=== PATIENT | male | born 1955 | race Caucasian/White ===

== ENCOUNTER 2020-08-03 13:57 | Emergency (ER) | payer OTHER ==
--- NOTE | 2020-08-03 15:19 | EDM.PDOC ---
ED HPI GENERAL MEDICAL PROBLEM - General Chief Complaint: Respiratory Problem Stated Complaint: SHORTNESS OF BREATH COVID Time Seen by Provider: 08/03/20 15:00 Source of Information: Reports: Patient History Limitations: Reports: No Limitations - History of Present Illness INITIAL COMMENTS - FREE TEXT/NARRATIVE: This 65 yo male patient reports to the ED due to increased shortness of breath over the past 9 days. The patient reports his and daughter have been diagnosed with COVID. The patient reports a history of Asthma, but is currently not on any medications. Onset Date: 07/25/20 Duration: Day(s):, Constant, Getting Worse Location: Reports: Chest Quality: Reports: Other Severity: Moderate Improves with: Reports: None Worsens with: Reports: None Context: Reports: Other Associated Symptoms: Reports: Cough, Shortness of Breath ED ROS GENERAL - Review of Systems Review Of Systems: Comprehensive ROS is negative, except as noted in HPI. ED EXAM, GENERAL - Physical Exam Exam: See Below Exam Limited By: No Limitations General Appearance: Alert, WD/WN, Moderate Distress Eye Exam: Bilateral Eye: EOMI, Normal Inspection, PERRL Ears: Normal External Exam, Normal Canal, Hearing Grossly Normal, Normal TMs Nose: Normal Inspection Throat/Mouth: Normal Inspection, Normal Lips, Normal Teeth, Normal Gums, Normal Oropharynx, Normal Voice, No Airway Compromise Head: Atraumatic, Normocephalic Neck: Normal Inspection, Supple, Non-Tender, Full Range of Motion Respiratory/Chest: Decreased Breath Sounds (bilateral lower lobes). No: Rhonchi, Wheezing Cardiovascular: Normal Peripheral Pulses, Regular Rate, Rhythm, No Edema, No Gallop, No JVD, No Murmur, No Rub GI/Abdominal: Normal Bowel Sounds, Soft, Non-Tender, No Organomegaly, No Distent ion, No Abnormal Bruit, No Mass (Male) Exam: Deferred Rectal (Males) Exam: Deferred Back Exam: Normal Inspection, Full Range of Motion, NT Extremities: Normal Inspection, Normal Range of Motion, Non-Tender, Normal Capillary Refill, No Pedal Edema Neurological: Alert, Oriented, CN II-XII Intact, Normal Cognition, Normal Gait, Normal Reflexes, No Motor/Sensory Deficits Psychiatric: Normal Affect, Normal Mood Skin Exam: Warm, Dry, Intact, Normal Color, No Rash Lymphatic: No Adenopathy Course - Vital Signs Last Recorded V/S: Last Vital Signs Temp 36.4 C 08/03/20 14:16 Pulse 101 H 08/03/20 14:16 Resp 14 08/03/20 14:16 BP 133/77 08/03/20 14:16 Pulse Ox 96 08/03/20 14:16 - Orders/Labs/Meds Labs: Laboratory Tests 08/03/20 Range/Units 14:40 SARS CoV-2 RNA Rapid URIAH Positive H (NEGATIVE) Departure - Departure Time of Disposition: 15:16 Disposition: Home, Self-Care 01 Condition: Fair Clinical Impression: COVID-19 - Discharge Information *PRESCRIPTION DRUG MONITORING PROGRAM REVIEWED*: Not Applicable *COPY OF PRESCRIPTION DRUG MONITORING REPORT IN PATIENT FRANK: Not Applicable Instructions: COVID-19: How to Protect Yourself and Others - CDC, Prevent the Spread of COVID-19 if You Are Sick - [facility] [place]: ED Department Discharge Care Plan Goals: The patient was advised of the examination and lab results during the visit. The patient was discharged with scripts for 1) Dexamethasone (6 mg) to take 1 by mouth daily for 10 days, 2) Doxycycline (100 mg) #20 to take 1 by mouth 2 times per day for 10 days and 3) Albuterol MDI to take 2 puffs every 4 hours as needed. If the patient has any additional symptoms or concerns, the patient should either return to the emergency department or visit his primary care facility. Sepsis Event Note (ED) - Evaluation Sepsis Screening Result: No Definite Risk - Focused Exam Vital Signs: Vital Signs Temp Pulse Resp BP Pulse Ox 08/03/20 14:16 36.4 C 101 H 14 133/77 96
== END 2020-08-03 15:27 | disposition home or self-care (01) ==
LOC: DL.ED 13:57
DX: U07.1 COVID-19 (principal)
CPT/HCPCS: 99283; U0002

== ENCOUNTER 2020-08-07 10:23 | Inpatient (IN) | payer OTHER ==
--- NOTE | 2020-08-07 11:12 | EDM.PDOC ---
ED HPI GENERAL MEDICAL PROBLEM - General Chief Complaint: Respiratory Problem Stated Complaint: COVID+ HARD TIME BREATHING Time Seen by Provider: 08/07/20 10:50 Source of Information: Reports: Patient History Limitations: Reports: No Limitations - History of Present Illness INITIAL COMMENTS - FREE TEXT/NARRATIVE: This 65 yo male patient reports to the ED with increased shortness of breath. The patient reports he started to have COVID symptoms on 07/25/20, was seen in the ED on 08/03/20, was started on Dexamethasone, Doxycycline, Albuterol Inhaler, but has continued to have increased symptoms. The patient reports he did use his inhaler for the first time today with no changes in his symptoms. The patient reports he has been taking his medications as prescribed. Nursing s taff reported the patient's oxygen saturation dropped to 84% when moving from the wheelchair to the bed without oxygen. Duration: Day(s):, Constant, Getting Worse Location: Reports: Chest Quality: Reports: Other Severity: Moderate Improves with: Reports: Rest Worsens with: Reports: Movement Context: Reports: Other Associated Symptoms: Reports: Cough, Shortness of Breath - Related Data Allergies Allergy/AdvReac Type Severity Reaction Status Date / Time No Known Allergies Allergy Verified 08/07/20 10:50 ED ROS GENERAL - Review of Systems Review Of Systems: Comprehensive ROS is negative, except as noted in HPI. ED EXAM, GENERAL - Physical Exam Exam: See Below Exam Limited By: No Limitations General Appearance: Alert, WD/WN, Moderate Distress Eye Exam: Bilateral Eye: EOMI, Normal Inspection, PERRL Ears: Normal External Exam, Normal Canal, Hearing Grossly Normal, Normal TMs Nose: Normal Inspection, Normal Mucosa, No Blood Throat/Mouth: Normal Inspection, Normal Lips, Normal Teeth, Normal Gums, Normal Oropharynx, Normal Voice, No Airway Compromise Head: Atraumatic, Normocephalic Neck: Normal Inspection, Supple, Non-Tender, Full Range of Motion Respiratory/Chest: Decreased Breath Sounds Cardiovascular: Normal Peripheral Pulses, Regular Rate, Rhythm, No Edema, No Gallop, No JVD, No Murmur, No Rub GI/Abdominal: Normal Bowel Sounds, Soft, Non-Tender, No Organomegaly, No Distention, No Abnormal Bruit, No Mass (Male) Exam: Deferred Rectal (Males) Exam: Deferred Back Exam: Normal Inspection, Full Range of Motion, NT Extremities: Normal Inspection, Normal Range of Motion, Non-Tender, Normal Capillary Refill, No Pedal Edema Neurological: Alert, Oriented, CN II-XII Intact, Normal Cognition, Normal Gait, Normal Reflexes, No Motor/Sensory Deficits Psychiatric: Normal Affect, Normal Mood Skin Exam: Warm, Dry, Intact, Normal Color, No Rash Lymphatic: No Adenopathy Course - Vital Signs Last Recorded V/S: Last Vital Signs Temp 37.3 C 08/07/20 10:50 Pulse 90 08/07/20 10:50 Resp 20 08/07/20 10:50 BP 121/62 08/07/20 10:50 Pulse Ox 89 L 08/07/20 10:50 - Orders/Labs/Meds Orders: Active Orders 24 hr Category Date Time Status EKG Documentation Completion [RC] STAT Care 08/07/20 11:03 Active CULTURE BLOOD [BC] Stat Lab 08/07/20 11:08 Received Labs: Laboratory Tests 08/07/20 08/07/20 08/07/20 Range/Units 11:08 11:08 11:08 WBC 8.9 (5.0-10.0) 10^3/uL RBC 4.97 (4.6-6.2) 10^6/uL Hgb 14.4 (14.0-18.0) g/dL Hct 41.0 (40.0-54.0) % MCV 82.5 (80-100) fL MCH 29.0 (27.0-34.0) pg MCHC 35.1 H (33.0-35.0) g/dL Plt Count 244 (150-450) 10^3/uL Neut % (Auto) 85.7 H (42.2-75.2) % Lymph % (Auto) 6.4 L (20.5-50.1) % [place] % (Auto) 7.6 (2-8) % Eos % (Auto) 0.1 L (1.0-3.0) % Baso % (Auto) 0.2 (0.0-1.0) % Add Manual Diff Yes Neutrophils % (Manual) 88 H (42-75) % Band Neutrophils % 2 % Lymphocytes % (Manual) 3 L (20-50) % Monocytes % (Manual) 7 (2-8) % D-Dimer, Quantitative > 5000 H (0-400) ng/mL Sodium 136 (136-145) mmol/L Potassium 3.5 (3.5-5.1) mmol/L Chloride 101 (98-107) mmol/L Carbon Dioxide 24 (21-32) mmol/L Anion Gap 14.5 H (7-13) mEq/L BUN 23 H (7-18) mg/dL Creatinine 1.23 (0.70-1.30) mg/dL Est Cr Clr Drug Dosing 67.47 mL/min Estimated GFR (MDRD) 59 BUN/Creatinine Ratio 18.7 (No establ ref range) Glucose 165 H (74-99) mg/dL Lactic Acid (0.4-2.0) mmol/L Calcium 8.5 (8.5-10.1) mg/dL Total Bilirubin 1.0 (0.2-1.0) mg/dL AST 37 (15-37) U/L ALT 58 (16-63) U/L Alkaline Phosphatase 60 (46-116) U/L Troponin I < 0.017 (0.000-0.056) ng/mL Total Protein 7.1 (6.4-8.2) g/dL Albumin 3.2 L (3.4-5.0) g/dL Globulin 3.9 Albumin/Globulin Ratio 0.82 11/24/20 Range/Units 11:08 WBC (5.0-10.0) 10^3/uL RBC (4.6-6.2) 10^6/uL Hgb (14.0-18.0) g/dL Hct (40.0-54.0) % MCV (80-100) fL MCH (27.0-34.0) pg MCHC (33.0-35.0) g/dL Plt Count (150-450) 10^3/uL Neut % (Auto) (42.2-75.2) % Lymph % (Auto) (20.5-50.1) % [place] % (Auto) (2-8) % Eos % (Auto) (1.0-3.0) % Baso % (Auto) (0.0-1.0) % Add Manual Diff Neutrophils % (Manual) (42-75) % Band Neutrophils % % Lymphocytes % (Manual) (20-50) % Monocytes % (Manual) (2-8) % D-Dimer, Quantitative (0-400) ng/mL Sodium (136-145) mmol/L Potassium (3.5-5.1) mmol/L Chloride (98-107) mmol/L Carbon Dioxide (21-32) mmol/L Anion Gap (7-13) mEq/L BUN (7-18) mg/dL Creatinine (0.70-1.30) mg/dL Est Cr Clr Drug Dosing mL/min Estimated GFR (MDRD) BUN/Creatinine Ratio (No establ ref range) Glucose (74-99) mg/dL Lactic Acid 2.6 H* (0.4-2.0) mmol/L Calcium (8.5-10.1) mg/dL Total Bilirubin (0.2-1.0) mg/dL AST (15-37) U/L ALT (16-63) U/L Alkaline Phosphatase (46-116) U/L Troponin I (0.000-0.056) ng/mL Total Protein (6.4-8.2) g/dL Albumin (3.4-5.0) g/dL Globulin Albumin/Globulin Ratio Meds: Medications Discontinued Medications Generic Name Dose Route Start Last Admin Trade Name Freq PRN Reason Stop Dose Admin Iopamidol 100 ml 08/07/20 11:57 08/07/20 12:52 Isovue-370 (76%) IVPUSH 08/07/20 11:58 80 ml ONETIME ONE Administration Departure - Departure Time of Disposition: 13:15 Disposition: Admitted As Inpatient 68 Condition: Poor Clinical Impression: Hypoxia Pneumonia Qualifiers: Pneumonia type: due to unspecified organism Laterality: bilateral Lung location: unspecified part of lung Qualified Code(s): J18.9 - Pneumonia, unspecified organism - Discharge Information *PRESCRIPTION DRUG MONITORING PROGRAM REVIEWED*: Not Applicable *COPY OF PRESCRIPTION DRUG MONITORING REPORT IN PATIENT FRANK: Not Applicable Care Plan Goals: Discussed the patient's history, examination, previous treatments and CT results with Dr. Machado. Dr. Machado accepted the patient for continued evaluation and further management as an inpatient at [facility]. Sepsis Event Note (ED) - Evaluation Sepsis Screening Result: No Definite Risk - Focused Exam Vital Signs: Vital Signs Temp Pulse Resp BP Pulse Ox 08/07/20 10:50 37.3 C 90 20 121/62 89 L - My Orders Last 24 Hours: My Active Orders 08/07/20 11:03 EKG Documentation Completion [RC] STAT 08/07/20 11:08 CULTURE BLOOD [BC] Stat - Assessment/Plan Last 24 Hours: My Active Orders 08/07/20 11:03 EKG Documentation Completion [RC] STAT 08/07/20 11:08 CULTURE BLOOD [BC] Stat
[2020-08-07 11:43] LABS: ANION GAP 14.5 mEq/L (7-13); CHLORIDE,CL 101 mmol/L (98-107); SODIUM,NA 136 mmol/L (136-145)
[2020-08-07] MEDS ORDERED: Iopamidol 755 Mg/ML 100 ML Bottle IVPUSH ONE (11:57)
--- NOTE | 2020-08-07 12:37 | CT ---
EXAMINATION: Chest w Cont SEX: Male AGE: 65 years CLINICAL HISTORY: 65-year-old: Positive patient in the emergency department short of breath. Serum D dimer greater than 5000. Scan technique: Volume acquisition of data from the chest (bony thorax, lungs and mediastinum) obtained during the intravenous administration 80 cc nonionic Isovue 370 contrast at 5 cc/s via injector while patient was lying supine on the Siemens multislice scanner [place], [place]. All data archived in the PACS system for storage, reformatting axial/sagittal/coronal planes and study (lung/mediastinal/bone windows). Interpretation: Abnormal. 1. *Multilobar, peripheral pleural-based, "groundglass" lung densities identified throughout both lung johnson. 2. No intraluminal filling defect or thrombus identified in the proximal main pulmonary artery segments. 3. No abnormal regions of focal oligemia or signs of dependent pleural effusion. 4. No proximal focal lobar consolidation (infiltrate/atelectasis) or air bronchograms. 5. Normal cardiac silhouette. No pericardial effusion. No vascular congestion or alveolar edema. 6. Normal caliber thoracic aorta. No aneurysm or dissection. No pneumothorax or pneumomediastinum. 7. No lung mass or suspicious hilar/mediastinal lymphadenopathy. 8. Gallbladder, liver, stomach, spleen and pancreas unremarkable. 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 No underlying signs of heart failure, lung malignancy or bacterial pneumonia.
[2020-08-07] MEDS ORDERED: Magnesium Hydroxide 400 MG/5 ML Susp 30 ML Cup PO PRN (13:40)
[2020-08-07] MEDS ORDERED: Docusate Sodium 100 MG Cap PO PRN (13:40)
[2020-08-07] MEDS ORDERED: Ondansetron 4 MG/2 ML SDV IVPUSH PRN (13:40)
--- NOTE | 2020-08-07 13:55 | PCM.HP ---
H&P History of Present Illness - General Date of Service: 08/07/20 Admit Problem/Dx: Admission Diagnosis/Problem Admission Diagnosis/Problem Hypoxia Source of Information: Patient History Limitations: Reports: No Limitations - History of Present Illness Initial Comments - Free Text/Narative: Jerome is 65-year-old male with no significant past medical history who presented to the ED for evaluation of worsening symptoms of COVID-19. Patient reports his symptoms started on day 07/25/2020. He has been recuperating at home. He was seen in the ED on 08/03/2020 and tested positive for COVID-19. He was discharged home on dexamethasone, doxycycline and albuterol. Patient does not recall how he contracted the virus. He has been having increasing shortness of breath, cough, fever on and off, headache so he presented back to the ED. His O2 sats in the ED was 84% on room air. He was placed on supplemental oxygen. He denies chest pain. He has no fever, chills at this time. Denies abdominal pain, nausea, vomiting, diarrhea. Significant labs: D-dimer 5000, lactic acid 2.6. He had a CT chest which was negative for PE. He did show monitor for groundglass opacity throughout the lung johnson. Admission was requested for further management. Onset of Symptoms: Reports: Gradual Duration of Symptoms: Reports: Day(s): Location: Reports: Chest Quality: Reports: Ache Improves with: Reports: None Worsens with: Reports: None Associated Symptoms: Reports: No Other Symptoms - Related Data Allergies/Adverse Reactions: Allergies Allergy/AdvReac Type Severity Reaction Status Date / Time No Known Allergies Allergy Verified 08/07/20 10:50 Past Medical History - Past Health History Medical/Surgical History: Denies Medical/Surgical History - Infectious Disease History Infectious Disease History: Reports: Novel Coronavirus Social & Family History - Tobacco Use Tobacco Use Status *Q: Never Tobacco User Second Hand Smoke Exposure: No - Caffeine Use Caffeine Use: Reports: None - Recreational Drug Use Recreational Drug Use: No H&P Review of Systems - Review of Systems: Review Of Systems: See Below Free Text/Narrative: Shortness of breath General: Reports: No Symptoms HEENT: Reports: No Symptoms Pulmonary: Reports: Shortness of Breath, Cough, Sputum Cardiovascular: Reports: No Symptoms Gastrointestinal: Reports: No Symptoms Genitourinary: Reports: No Symptoms Musculoskeletal: Reports: No Symptoms Skin: Reports: No Symptoms Psychiatric: Reports: No Symptoms Neurological: Reports: No Symptoms Hematologic/Lymphatic: Reports: No Symptoms Immunologic: Reports: No Symptoms Exam - Exam Exam: See Below - Vital Signs Vital Signs: Last Vital Signs Temp 98.4 F 08/07/20 13:30 Pulse 111 H 08/07/20 13:30 Resp 20 08/07/20 13:30 BP 113/73 08/07/20 13:30 Pulse Ox 91 L 08/07/20 13:32 Weight: 250 lb - Exam Quality Assessment: Supplemental Oxygen General: Alert, Oriented, 4 HEENT: PERRLA, Hearing Intact, Mucosa Moist & [place], Nares Patent, Normal Nasal Septum, Posterior Pharynx Clear, Conjunctiva Clear, EOMI, EACs Clear, TMs Clear Neck: Supple, Trachea Midline, 2 Lungs: Clear to Auscultation, Normal Respiratory Effort Cardiovascular: Regular Rate, Regular Rhythm GI/Abdominal Exam: Normal Bowel Sounds, Soft, Non-Tender, No Organomegaly, No Distention, No Abnormal Bruit, No Mass, Pelvis Stable (Male) Exam: No Hernia, Normal Inspection, Normal Prostate, Circumcised Rectal (Males) Exam: Normal Exam, Normal Rectal Tone, Prostate Normal Back Exam: Normal Inspection, Full Range of Motion, NT Extremities: Normal Inspection, Normal Range of Motion, Non-Tender, No Pedal Edema, Normal Capillary Refill Skin: Warm, Dry, Intact Neurological: Cranial Nerves Intact, Reflexes Equal Bilateral Neuro Extensive - Mental Status: Alert, Oriented x3, Normal Mood/Affect, Normal Cognition Neuro Extensive - Motor, Sensory, Reflexes: CN II-XII Intact, Normal Gait, Normal Reflexes Psychiatric: Alert, Normal Affect, Normal Mood - Patient Data Lab Results Last 24 hrs: Laboratory Results - last 24 hr 08/07/20 08/07/20 08/07/20 Range/Units 11:08 11:08 11:08 WBC 8.9 (5.0-10.0) 10^3/uL RBC 4.97 (4.6-6.2) 10^6/uL Hgb 14.4 (14.0-18.0) g/dL Hct 41.0 (40.0-54.0) % MCV 82.5 (80-100) fL MCH 29.0 (27.0-34.0) pg MCHC 35.1 H (33.0-35.0) g/dL Plt Count 244 (150-450) 10^3/uL Neut % (Auto) 85.7 H (42.2-75.2) % Lymph % (Auto) 6.4 L (20.5-50.1) % [place] % (Auto) 7.6 (2-8) % Eos % (Auto) 0.1 L (1.0-3.0) % Baso % (Auto) 0.2 (0.0-1.0) % Add Manual Diff Yes Neutrophils % (Manual) 88 H (42-75) % Band Neutrophils % 2 % Lymphocytes % (Manual) 3 L (20-50) % Monocytes % (Manual) 7 (2-8) % D-Dimer, Quantitative > 5000 H (0-400) ng/mL Sodium 136 (136-145) mmol/L Potassium 3.5 (3.5-5.1) mmol/L Chloride 101 (98-107) mmol/L Carbon Dioxide 24 (21-32) mmol/L Anion Gap 14.5 H (7-13) mEq/L BUN 23 H (7-18) mg/dL Creatinine 1.23 (0.70-1.30) mg/dL Est Cr Clr Drug Dosing 67.47 mL/min Estimated GFR (MDRD) 59 BUN/Creatinine Ratio 18.7 (No establ ref range) Glucose 165 H (74-99) mg/dL Lactic Acid (0.4-2.0) mmol/L Calcium 8.5 (8.5-10.1) mg/dL Total Bilirubin 1.0 (0.2-1.0) mg/dL AST 37 (15-37) U/L ALT 58 (16-63) U/L Alkaline Phosphatase 60 (46-116) U/L Troponin I < 0.017 (0.000-0.056) ng/mL Total Protein 7.1 (6.4-8.2) g/dL Albumin 3.2 L (3.4-5.0) g/dL Globulin 3.9 Albumin/Globulin Ratio 0.82 11/24/20 Range/Units 11:08 WBC (5.0-10.0) 10^3/uL RBC (4.6-6.2) 10^6/uL Hgb (14.0-18.0) g/dL Hct (40.0-54.0) % MCV (80-100) fL MCH (27.0-34.0) pg MCHC (33.0-35.0) g/dL Plt Count (150-450) 10^3/uL Neut % (Auto) (42.2-75.2) % Lymph % (Auto) (20.5-50.1) % [place] % (Auto) (2-8) % Eos % (Auto) (1.0-3.0) % Baso % (Auto) (0.0-1.0) % Add Manual Diff Neutrophils % (Manual) (42-75) % Band Neutrophils % % Lymphocytes % (Manual) (20-50) % Monocytes % (Manual) (2-8) % D-Dimer, Quantitative (0-400) ng/mL Sodium (136-145) mmol/L Potassium (3.5-5.1) mmol/L Chloride (98-107) mmol/L Carbon Dioxide (21-32) mmol/L Anion Gap (7-13) mEq/L BUN (7-18) mg/dL Creatinine (0.70-1.30) mg/dL Est Cr Clr Drug Dosing mL/min Estimated GFR (MDRD) BUN/Creatinine Ratio (No establ ref range) Glucose (74-99) mg/dL Lactic Acid 2.6 H* (0.4-2.0) mmol/L Calcium (8.5-10.1) mg/dL Total Bilirubin (0.2-1.0) mg/dL AST (15-37) U/L ALT (16-63) U/L Alkaline Phosphatase (46-116) U/L Troponin I (0.000-0.056) ng/mL Total Protein (6.4-8.2) g/dL Albumin (3.4-5.0) g/dL Globulin Albumin/Globulin Ratio Result Diagrams: 08/07/20 11:08 08/07/20 11:08 - Problem List (1) Acute respiratory failure with hypoxia SNOMED Code(s): 08986022, 801610772 ICD Code: J96.01 - ACUTE RESPIRATORY FAILURE WITH HYPOXIA Status: Acute Current Visit: Yes (2) Sepsis SNOMED Code(s): 72242644 ICD Code: A41.9 - SEPSIS, UNSPECIFIED ORGANISM Status: Acute Current Visit: Yes (3) Elevated d-dimer SNOMED Code(s): 445222710 ICD Code: R79.89 - OTHER SPECIFIED ABNORMAL FINDINGS OF BLOOD CHEMISTRY Status: Acute Current Visit: Yes Problem List Initiated/Reviewed/Updated: Yes Orders Last 24hrs: Active Orders 24 hr Category Date Time Status Admission Diagnosis [ADT] Urgent ADT 08/07/20 13:12 Ordered Admission Status [Patient Status] [ADT] Routine ADT 08/07/20 13:12 Active Ambulate [RC] ASDIRECTED Care 08/07/20 13:40 Ordered EKG Documentation Completion [RC] STAT Care 08/07/20 11:03 Active Height and Weight [RC] DAILY Care 08/07/20 13:40 Ordered Intake and Output [RC] QSHIFT Care 08/07/20 13:41 Ordered Notify Provider Vital Signs [RC] ASDIRECTED Care 08/07/20 13:41 Ordered Oxygen Therapy [RC] PRN Care 08/07/20 13:41 Ordered Pulse Oximetry [RC] PRN Care 08/07/20 13:41 Ordered VTE/DVT Education [RC] PER UNIT ROUTINE Care 08/07/20 13:41 Ordered Vital Signs [RC] Q4H Care 08/07/20 13:41 Ordered Respiratory Care Assess and Treatment [CONS] Routine Cons 08/07/20 13:44 Ordered Regular Diet [DIET] Diet 08/07/20 Dinner Ordered COMPREHENSIVE METABOLIC PN,CMP [CHEM] DAILY Lab 08/08/20 07:00 Ordered COMPREHENSIVE METABOLIC PN,CMP [CHEM] DAILY Lab 08/09/20 07:00 Ordered COMPREHENSIVE METABOLIC PN,CMP [CHEM] DAILY Lab 08/10/20 07:00 Ordered COMPREHENSIVE METABOLIC PN,CMP [CHEM] DAILY Lab 08/11/20 07:00 Ordered CULTURE BLOOD [BC] Stat Lab 08/07/20 11:08 Received CULTURE BLOOD [BC] Stat Lab 08/07/20 13:44 Ordered CULTURE BLOOD [BC] Stat Lab 08/07/20 13:44 Ordered DD [D-DIMER QUANTITATIVE] [COAG] DAILY Lab 08/08/20 07:00 Ordered DD [D-DIMER QUANTITATIVE] [COAG] DAILY Lab 08/09/20 07:00 Ordered DD [D-DIMER QUANTITATIVE] [COAG] DAILY Lab 08/10/20 07:00 Ordered DD [D-DIMER QUANTITATIVE] [COAG] DAILY Lab 08/11/20 07:00 Ordered INR,PT,PROTHROMBIN TIME [COAG] DAILY Lab 08/08/20 07:00 Ordered INR,PT,PROTHROMBIN TIME [COAG] DAILY Lab 08/09/20 07:00 Ordered INR,PT,PROTHROMBIN TIME [COAG] DAILY Lab 08/10/20 07:00 Ordered INR,PT,PROTHROMBIN TIME [COAG] DAILY Lab 08/11/20 07:00 Ordered LACTATE DEHYDROGENASE,LDH [CHEM] DAILY Lab 08/08/20 07:00 Ordered LACTATE DEHYDROGENASE,LDH [CHEM] DAILY Lab 08/09/20 07:00 Ordered LACTATE DEHYDROGENASE,LDH [CHEM] DAILY Lab 08/10/20 07:00 Ordered LACTATE DEHYDROGENASE,LDH [CHEM] DAILY Lab 08/11/20 07:00 Ordered MAGNESIUM [CHEM] Routine Lab 08/07/20 13:40 Ordered PHOSPHORUS [CHEM] Routine Lab 08/07/20 13:40 Ordered TROPONIN I [CHEM] DAILY Lab 08/08/20 07:00 Ordered TROPONIN I [CHEM] DAILY Lab 08/09/20 07:00 Ordered TROPONIN I [CHEM] DAILY Lab 08/10/20 07:00 Ordered TROPONIN I [CHEM] DAILY Lab 08/11/20 07:00 Ordered Acetaminophen [TylenoL] Med 08/07/20 13:40 Ordered 650 mg PO Q4H PRN Docusate Sodium [Colace] Med 08/07/20 13:40 Ordered 100 mg PO BID PRN Magnesium Hydroxide [Milk of Magnesia] Med 08/07/20 13:40 Ordered 30 ml PO Q12H PRN Ondansetron [Zofran] Med 08/07/20 13:40 Ordered 4 mg IVPUSH Q6H PRN dexAMETHasone [Decadron] Med 08/08/20 09:00 Ordered 6 mg IVPUSH DAILY Blood Culture x2 Reflex Set [OM.PC] Stat Oth 08/07/20 13:44 Ordered Resuscitation Status Routine Resus Stat 08/07/20 13:40 Ordered Medication Orders Acetaminophen (Tylenol) 650 mg PO Q4H PRN PRN Reason: Pain (Mild 1-3)/fever Dexamethasone (Decadron) 6 mg IVPUSH DAILY [place] Docusate Sodium (Colace) 100 mg PO BID PRN PRN Reason: Constipation Magnesium Hydroxide (Milk Of Magnesia) 30 ml PO Q12H PRN PRN Reason: Constipation Ondansetron HCl (Zofran) 4 mg IVPUSH Q6H PRN PRN Reason: Nausea/Vomiting Assessment/Plan Comment:: #COVID-19 pneumonia #Acute respiratory failure with hypoxia Patient presented to the ED with worsening symptoms of COVID-19 His symptoms started on 07/25/20. He was tested on 08/03/2018 was positive He was sent home on dexamethasone Admit to medical unit Sent for procalcitonin Continue dexamethasone Given onset of symptoms patient would not benefit from remdesivir convalescent plasma Continue supplemental oxygen and wean down as able Respiratory to assess and treat Daily COVID-19 labs Physical therapy and Occupational Therapy #Probable sepsis due to above Follow-up cultures Start patient on ceftriaxone and azithromycin #Elevated D-dimer likely due to COVID-[address] negative for PE Eliquis for DVT prophylaxis Daily D-dimer
[2020-08-07] MEDS: cefTRIAXone 1 GM in Sodium Chloride 0.9% 50 ML IV SCH (15:38)
[2020-08-07] MEDS: Azithromycin 500 MG in Sodium Chloride 0.9% 250 ML IV SCH (16:00)
[2020-08-07] MEDS: Formoterol/Mometasone 200-5 MCG 8.8 GM Inhaler IH SCH (17:47)
[2020-08-07] MEDS: Albuterol 6.7 GM Inhaler INH SCH ×2 (17:47→20:48)
[2020-08-07] MEDS: Apixaban 5 MG Tab PO SCH (20:43)
[2020-08-07] MEDS: Acetaminophen 325 MG Tab PO PRN (20:44)
[2020-08-08] MEDS: Acetaminophen 325 MG Tab PO PRN (05:51)
[2020-08-08 07:12] LABS: ANION GAP 12.9 mEq/L (7-13); CHLORIDE,CL 106 mmol/L (98-107); SODIUM,NA 140 mmol/L (136-145)
[2020-08-08] MEDS: Albuterol 6.7 GM Inhaler INH SCH ×4 (09:24→21:17)
[2020-08-08] MEDS: Formoterol/Mometasone 200-5 MCG 8.8 GM Inhaler IH SCH ×2 (09:24→19:02)
[2020-08-08] MEDS: Apixaban 5 MG Tab PO SCH ×2 (09:25→21:17)
[2020-08-08] MEDS: Dexamethasone 4 MG/ML SDV IVPUSH SCH (09:25)
--- NOTE | 2020-08-08 11:12 | PN ---
DATE: 08/08/2020 SUBJECTIVE: The patient is a 65-year-old gentleman admitted with hypoxemia and COVID pneumonia. The patient overall is doing fairly well when he is just playing still, but still has desaturation into the 70s with [id number] activity. He is still on high-flow nasal cannula of oxygen. The patient denies though any chest pain, headache, abdominal pain, nor any other complaints. LABORATORY DATA: Lab workup this morning; protime is 11.8, INR is 1.2, D-dimer is 3710, (improving). Basic metabolic panel: Glucose is 118, the rest of the panel unremarkable. Troponin is less than 0.017. Total protein is 6.3, albumin is 2.6. OBJECTIVE: Vital Signs: Blood pressure is 117/72, pulse of 79, respirations 20, temperature of 100, saturation is 93%, and this is on high flow 7 L of FiO2. Heart: Regular rate and rhythm. Normal S1 and S2. No gallops. No rubs. Lungs: Have diminished breath sounds bilaterally, but no significant crackles, no wheezing. Abdomen: Soft, nontender, bowel sounds positive. Extremities: Negative for any pedal edema. No calf tenderness. IMPRESSION: Hypoxemia and coronavirus disease pneumonia. We will continue with his azithromycin and ceftriaxone and dexamethasone, and we will continue with apixaban because of the significantly elevated D-dimer. We will continue with the rest of his management. [facility] /[id number]
[2020-08-08] MEDS: cefTRIAXone 1 GM in Sodium Chloride 0.9% 50 ML IV SCH (15:38)
[2020-08-08] MEDS: Azithromycin 500 MG in Sodium Chloride 0.9% 250 ML IV SCH (16:42)
[2020-08-09] MEDS: Albuterol 6.7 GM Inhaler INH SCH ×5 (05:42→21:50)
[2020-08-09] MEDS: Formoterol/Mometasone 200-5 MCG 8.8 GM Inhaler IH SCH ×3 (05:43→18:02)
[2020-08-09 07:00] LABS: ANION GAP 16.2 mEq/L (7-13); CHLORIDE,CL 106 mmol/L (98-107); SODIUM,NA 140 mmol/L (136-145)
[2020-08-09] MEDS: Apixaban 5 MG Tab PO SCH ×2 (08:39→21:50)
[2020-08-09] MEDS: Dexamethasone 4 MG/ML SDV IVPUSH SCH (08:39)
--- NOTE | 2020-08-09 10:06 | PN ---
DATE: 08/09/2020 SUBJECTIVE: The patient is doing fairly well and oxygen saturation is slightly better from yesterday, but he still desaturates with minimal to moderate activity. Oxygen saturation at rest this morning is 93% and he is on 40% high- flow nasal cannula. Otherwise, he denies any chest pain, orthopnea, PND, abdominal pain, nor any other complaints. LABORATORY DATA: Lab workup this morning; D-dimer is 3190 (improving). Chem-6: BUN is 22, glucose is 123, and the rest of the panel unremarkable. LDH is 229, which is improving. OBJECTIVE: Vital Signs: Blood pressure is 121/74, pulse of 89, respiration of 20, temperature of 98.5, and saturation is 93% on 40 FiO2 through high-flow nasal cannula. Heart: Regular rate and rhythm. Normal S1 and S2. No gallops. No rubs. Lungs: Diminished breath sounds on both bases with faint crackles. No wheezing. ABDOMEN: Soft, nontender. Bowel sounds positive. EXTREMITIES: Negative for any pedal edema. No calf tenderness. PLAN: We will continue with his present management and continue with azithromycin IV, ceftriaxone, dexamethasone, as well as his apixaban. [facility] /[id number]
[2020-08-09] MEDS: cefTRIAXone 1 GM in Sodium Chloride 0.9% 50 ML IV SCH (15:12)
[2020-08-09] MEDS: Azithromycin 500 MG in Sodium Chloride 0.9% 250 ML IV SCH (15:54)
[2020-08-09] MEDS: Sodium Chloride 0.9% 10 ML Syringe FLUSH PRN (21:52)
[2020-08-10 06:54] LABS: ANION GAP 14.2 mEq/L (7-13); CHLORIDE,CL 105 mmol/L (98-107); SODIUM,NA 138 mmol/L (136-145)
[2020-08-10] MEDS: Albuterol 6.7 GM Inhaler INH SCH ×4 (07:31→21:31)
[2020-08-10] MEDS: Formoterol/Mometasone 200-5 MCG 8.8 GM Inhaler IH SCH ×2 (07:32→18:06)
--- NOTE | 2020-08-10 09:09 | PN ---
DATE: 08/10/2020 SUBJECTIVE: The patient is a 65-year-old gentleman who was admitted with hypoxemia, COVID pneumonia, and significantly elevated D-dimer. The patient is doing fairly well. The patient is still needing oxygen, but now he is on 2 L per nasal cannula (improvement from the high-flow nasal cannula). He still desaturates with [id number] activity, but it is slowly getting better, and the patient currently denies any chest pain, orthopnea, PND, fever, chills, headache, nor any other complaints. OBJECTIVE: Vital Signs: Blood pressure is 127/74, pulse of 69, respirations of 18, temperature of 97.8, and saturation is 92% on 2 L per nasal cannula. Heart: Regular rate and rhythm. No gallops. No rubs. Lungs: Diminished breath sounds on both bases, but no significant crackles, no wheezing. Abdomen: Soft and nontender. Bowel sounds positive. Extremities: Negative for any pedal edema. No calf tenderness. LABORATORY DATA: Lab workup this morning, D-dimer is 2680 (improving). Chem-6: BUN is 22. The rest of the panel unremarkable. Glucose is 103. Troponin is less than 0.017. MEDICATIONS: Reviewed. PLAN: We will continue with his apixaban and continue with IV azithromycin, ceftriaxone, and dexamethasone. We will continue to wean him off oxygen as he tolerates it. [facility] /[id number]
[2020-08-10] MEDS: Dexamethasone 4 MG/ML SDV IVPUSH SCH (09:10)
[2020-08-10] MEDS: Apixaban 5 MG Tab PO SCH ×2 (09:10→21:31)
[2020-08-10] MEDS: cefTRIAXone 1 GM in Sodium Chloride 0.9% 50 ML IV SCH (15:08)
[2020-08-10] MEDS: Sodium Chloride 0.9% 10 ML Syringe FLUSH PRN (15:09)
[2020-08-10] MEDS: Azithromycin 500 MG in Sodium Chloride 0.9% 250 ML IV SCH (15:43)
[2020-08-11] MEDS: Albuterol 6.7 GM Inhaler INH SCH ×4 (06:17→21:08)
[2020-08-11] MEDS: Formoterol/Mometasone 200-5 MCG 8.8 GM Inhaler IH SCH ×2 (06:19→17:51)
[2020-08-11 06:55] LABS: ANION GAP 14.3 mEq/L (7-13); CHLORIDE,CL 105 mmol/L (98-107); SODIUM,NA 137 mmol/L (136-145)
[2020-08-11] MEDS: Apixaban 5 MG Tab PO SCH ×2 (09:02→21:08)
[2020-08-11] MEDS: Sodium Chloride 0.9% 10 ML Syringe FLUSH PRN ×4 (09:03→21:08)
[2020-08-11] MEDS: Dexamethasone 4 MG/ML SDV IVPUSH SCH (09:03)
[2020-08-11] MEDS: cefTRIAXone 1 GM in Sodium Chloride 0.9% 50 ML IV SCH (14:56)
[2020-08-11] MEDS: Azithromycin 500 MG in Sodium Chloride 0.9% 250 ML IV SCH (15:25)
[2020-08-12] MEDS: Albuterol 6.7 GM Inhaler INH SCH ×2 (06:27→12:39)
[2020-08-12] MEDS: Formoterol/Mometasone 200-5 MCG 8.8 GM Inhaler IH SCH (06:28)
[2020-08-12] MEDS: Dexamethasone 4 MG/ML SDV IVPUSH SCH (08:48)
[2020-08-12] MEDS: Apixaban 5 MG Tab PO SCH (08:49)
--- NOTE | 2020-08-12 10:05 | PN ---
DATE: 08/12/2020 SUBJECTIVE: The patient continues to do well. The patient's oxygen saturation on room air is 93% to 94%, but with moderate activity, it drops down to 86%. The patient denies any chest pain, fever, chills, abdominal pain, nausea, vomiting, nor any other complaints. OBJECTIVE: Vital Signs: Blood pressure is 122/69, pulse of 60, respirations 20, and temperature of 97.7. Heart: Regular rate and rhythm. Normal S1 and S2. No gallops. No rubs. Lungs: Diminished breath sounds on both bases, but no significant crackles, no wheezing. Abdomen: Soft, nontender. Bowel sounds positive. Extremities: Negative for any pedal edema. No calf tenderness. PLAN: We will discharge the patient home today, but we will continue with his oxygen with activity at 3 to 4 L per nasal cannula. We will also continue with his apixaban, and we will continue with oral antibiotics and dexamethasone. I am going to see him for followup in 7 to 10 days at the clinic for a recheck. [facility] /[id number]
--- NOTE | 2020-08-12 10:24 | DISCH ---
FINAL DIAGNOSES: 1. COVID-19 pneumonia. 2. Acute respiratory failure with hypoxia. PERTINENT LAB X-RAY AND OTHER TESTS: EKG, sinus rhythm with a rate of 82, and EKG is within normal limits. 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 Lab workup on admission, D-dimer was more than 5000 on admission, and on discharge, it is 1970. Blood cultures x2 is negative for any growth. HOSPITAL COURSE: The patient is a 65-year-old gentleman with no significant past medical history, who was admitted because of worsening shortness of breath and hypoxemia and COVID-19 pneumonia. The patient was admitted to [facility] isolation room. He was empirically started on IV antibiotics with Rocephin and azithromycin IV. He was also given IV dexamethasone and was also started on Eliquis 5 mg b.i.d. because of the significantly elevated D-dimer. The patient had a slow improvement. His oxygen saturation at rest slowly improved and went above 90%, but with [id number] activity, he easily desaturated to 84% to 86%, but hospital course was uncomplicated, and he was subsequently discharged on oxygen with activity at 3 L to 4 L per nasal cannula. The patient is going to follow up with me in 7 to 10 days, and we will continue with his dexamethasone and continue with Augmentin and Eliquis and continue with inhalers. CONDITION ON DISCHARGE: Improved. [facility] /[id number]
--- NOTE | 2020-08-13 06:53 | PN ---
DATE: 08/11/2020 SUBJECTIVE: The patient continued to slowly improve and he is feeling good when he is just lying down, but he still gets short of breath with oxygen desaturating with [id number] activity, but he denies any fever, chills, chest pain, orthopnea, PND, abdominal pain, or any other complaints. LAB WORKUP THIS MORNING: Protime is 11.2, INR 1.2. D-dimer is 1970 (improving). Comp panel: BUN is 21. The rest of the panel unremarkable. Total protein 6.1, albumin is 2.5. OBJECTIVE: Vital Signs: Blood pressure is 122/78, pulse of 75, respirations of 20, temperature of 97.1. Heart: Regular rate and rhythm. Normal S1 and S2. No gallops. No rubs. Lungs: Diminished breath sounds on both bases, but no significant crackles. No wheezing. Abdomen: Soft, nontender. Bowel sounds positive. Extremities: Negative for any significant pedal edema. No calf tenderness. PLAN: We will continue with his IV antibiotics, azithromycin and ceftriaxone and continue with IV dexamethasone and continue with his inhalers. We will also continue to try to wean him off oxygen as he tolerates it. [facility] /[id number]
== END 2020-08-12 13:10 | disposition home or self-care (01) | DRG 871 ==
LOC: DL.ED 10:23 → DL.MS 13:12 → UNDOADMIN 13:25
PROVIDERS: ADMIT Student in an Organized Health Care Education/Training Program; ATTEND Internal Medicine
PROC: 8E0ZXY6 Isolation (ICD-10-PCS; principal; 2020-08-07)
DX: A41.9 Sepsis, unspecified organism (principal); U07.1 COVID-19; J12.89 Other viral pneumonia; J96.01 Acute respiratory failure with hypoxia
CPT/HCPCS: 36415; 71260; 80053; 83605; 83615; 83735; 84100; 84484; 85025; 85379; 85610; 87040; 93005; 99284; 99285-25; A9270-GY; J0456; J0696; J1100; J7050; Q9967